=== PATIENT | female | born 1940 | race Caucasian/White ===

== ENCOUNTER 2016-07-05 10:31 | Observation (INO) | payer MEDICARE, OTHER ==
[~2016-07-05 10:31] MED LIST: ALDACTONE50 M1 PO; ASPIRIN NON IR325 MG PO; CARBAMAZEPINE100 M3 PO; CARBATROL100 MG PO; CARVEDILOL6.25 MG PO; CELEBREX200 M1 PO; CELEBREX200 MG PO; CITALOPRAM HBR20 M1 PO; CITALOPRAM HBR20 MG PO; CONCERTA; CONCERTA18 MG PO; COREG6.25 M1 PO; DETROL LA4 M1 PO; DETROL LA4 MG PO; DIAZEPAM5 M1 NG; L-THYROXINE PO; LEVOTHYROXINE50 MC3 PO; METHYLPHENIDATE18 M1 PO; MYRBETRIQ25 M1 PO; PAXIL; POTASSIUM; POTASSIUM CHLO20 ME1 PO; POTASSIUM CHLO20 ME3 PO; SPIRONOLACTONE; SPIRONOLACTONE50 MG PO; TEGRETOL; TEGRETOL X100 MG/TAB PO; TEGRETOL XR100 MG PO; VALIUM5 M1 PO; XANAX; XANAX2 M1 PO; XANAX2 MG PO
[2016-07-05] MEDS ORDERED: DETROL LA4 M1 PO (10:41)
[2016-07-05 11:06] LABS: URINE APPEARANCE CLEAR; URINE BILIRUBIN NEGATIVE (NEG); URINE BLOOD MODERATE (NEG); URINE COLOR PALE YELLOW; URINE GLUCOSE (UA) NEGATIVE (NEG); URINE KETONE NEGATIVE (NEG); URINE LEUKOCYTE ESTERASE NEGATIVE (NEG); URINE NITRITE NEGATIVE (NEG); URINE PROTEIN MODERATE (NEG); URINE SPECIFIC GRAVITY 1.015 (1.003-1.030)
[2016-07-05 11:14] LABS: BASO % 0.7 % (0-2); EOS % 2.7 % (0-7); EOSINOPHIL ABSOLUTE COUNT 0.2 tho/cmm (0.0-0.7); HCT-HEMATOCRIT 39.2 % (34.0-49.0); HGB-HEMOGLOBIN 13.2 gm/dl (12.0-15.5); IMMATURE GRANULOCYTES ABSOLUTE 0.02 tho/cmm (0-0.03); IMMATURE GRANULOCYTES PERCENT 0.4 % (0-0.3); LYMPH % 24.9 % (20-45); LYMPH ABSOLUTE COUNT 1.4 tho/cmm (0.8-4.5); MCH (MEAN CORPUSCULAR HGB) 31.1 pg (28.0-32.0); MCHC MEAN CORPUSCULAR HGB CONC 33.7 % (32.0-36.0); MCV (MEAN CELL VOLUME) 92.5 fl (82.0-96.0); MEAN PLATELET VOLUME 9.5 cmc (9.4-12.4); MONO % 9.5 % (0-12); MONOCYTE ABSOLUTE COUNT 0.5 tho/cmm (0.0-1.2); NEUTROPHIL ABSOLUTE COUNT 3.5 tho/cmm (1.6-8.0); NEUTROPHIL-AUTOMATED 3.5 tho/cmm (1.6-8.0); NEUTROPHILS % 61.8 % (40-80); PLATELET COUNT 182 tho/cmm (150-450); RED BLOOD COUNT 4.24 mil/cmm (4.00-5.20); RED CELL DISTRIBUTION WIDTH 13.2 % (12.4-16.4); WHITE BLOOD COUNT 5.6 tho/cmm (4.0-10.0)
[2016-07-05 11:15] LABS: CARBON DIOXIDE-VENOUS 30 mmol/L (21-33); CREATININE 0.68 mg/dl (0.67-1.17); GLUCOSE 120 mg/dl (65-120); SODIUM 142 mmol/L (135-146); eGFR VALUE FOR BLACK >90 mL/Min
[2016-07-05] MEDS ORDERED: CELEBREX200 M1 PO (11:17)
[2016-07-05 11:19] LABS: PROTHROMBIN TIME 11.3 SECONDS (9.0-13.6)
[2016-07-05 11:23] LABS: URINE BACTERIA 1+; URINE EPITHELIAL CELLS RARE /[HPF] (0-10); URINE RBC 0-2 /[HPF] (0-5); URINE WBC 0 /[HPF] (0-5)
[2016-07-05] MEDS ORDERED: ADVIL PM CAPLE1 EACH PO (11:23)
[2016-07-05] MEDS ORDERED: ASPIRIN EC81 MG PO (11:23)
[2016-07-05] MEDS ORDERED: IBUPROFEN200 M2 PO (11:24)
[2016-07-05 11:31] LABS: ALBUMIN 3.4 g/dl (3.5-5.0); ALKALINE PHOSPHATASE 112 U/L (33-138); ALT/SGPT 22 U/L (12-78); AST/SGOT 16 U/L (10-40); BILIRUBIN,TOTAL 0.3 mg/dl (0-1.5); BLOOD UREA NITROGEN 22 mg/dl (6-24); CALCIUM 7.7 mg/dl (8.5-10.5); CHLORIDE 111 mmol/l (96-110); LIPASE 92 U/L (73-393)
[2016-07-05 11:39] LABS: ANION GAP 5 mmol/L (0-20)
[2016-07-05 12:00] LABS: ESR-ERYTHROCYTE SED RATE 8 mm/hr (0-30)
== END 2016-07-06 19:15 ==
LOC: EDMED 10:31 → EMR2 14:49 → 5EB 17:30
PROVIDERS: Emergency Medicine; ADMIT Internal Medicine
DX: R47.01 Aphasia (principal); D35.00 Benign neoplasm of unspecified adrenal gland; I10 Essential (primary) hypertension; E03.9 Hypothyroidism, unspecified; G47.33 Obstructive sleep apnea (adult) (pediatric); F41.9 Anxiety disorder, unspecified; E83.51 Hypocalcemia; Z79.82 Long term (current) use of aspirin; Z79.899 Other long term (current) drug therapy; Z88.1 Allergy status to other antibiotic agents; Z88.5 Allergy status to narcotic agent; Z87.820 Personal history of traumatic brain injury; Z90.89 Acquired absence of other organs; Z98.51 Tubal ligation status; Z98.890 Other specified postprocedural states
CPT/HCPCS: A9577; G0378; G8978-GO-CH; G8978-GP-CI; G8979-GO-CH; G8979-GP-CI; G8980-GO-CH; G8980-GP-CI; G9165-GN-CJ; G9166-GN-CJ; G9167-GN-CJ; J1650